=== PATIENT | female | born 2000 ===

== ENCOUNTER 2020-04-13 17:07 | Outpatient (REF) | payer BC, SELFPAY ==
[2020-04-16 13:09] LABS: Chlamydia Result Negative (Negative); GC Result Negative (Negative)
== END 2020-04-13 17:27 ==
LOC: LBN 17:07
PROVIDERS: Nurse Practitioner Women's Health; Visit Provider Advanced Practice Midwife
DX: Z11.3 Encounter for screening for infections with a predominantly sexual mode of transmission (principal)
CPT/HCPCS: 87491; 87591